=== PATIENT | female | born 2000 | race Caucasian/White ===

== ENCOUNTER 2019-09-07 15:32 | Emergency (ER) | payer BC ==
[~2019-09-07] VITALS: Ht 160 cm; Wt 50.0 kg
[~2019-09-07 15:32] MED LIST: ALBU90AE; EPIN0.3P18; FLUT1DIS28; NORG1TAB15; PRD20T PO
[2019-09-07] MEDS ORDERED: methylPREDNISolone 125 MG (Solu-MEDROL) VIAL ONE (15:34)
[2019-09-07] MEDS ORDERED: diphenhydrAMINE 50 MG/ML INJ (BENADRYL) ONE (15:34)
[2019-09-07] MEDS ORDERED: FLUT50BL IH (15:42)
--- NOTE | 2019-09-07 15:47 | ED General ---
General Chief Complaint: Allergic Reaction Stated Complaint: PEANUT ALLERGY/THROAT TIGHTNESS Nursing Triage Note: PT STATES HAS ALLERGY TO NUTS STATES ATE ALMOND BUTTER, USED EPPI PEN BUT FEELS LIKE THROAT TIGHTENING. APPROX 10MIN AGO Nursing Sepsis Screen: No Definite Risk Source of Information: Patient Exam Limitations: No Limitations History of Present Illness Date Seen by Provider: Sep 07, 2019 Time Seen by Provider: 15:43 Initial Comments To ER with reports of peanut allergy, drank an almond protein smoothie from [email or web address] house and believes it may have been contaminated with the peanut substance. Shortly after drinking as she developed tightness in her throat. She took her epinephrine pen about 10 minutes ago and has significant improvement in the tightness in her throat. No rash no itching no dyspnea and no abdominal cramping Timing/Duration: 1-2 Days Severity: Moderate Associated Systoms: Denies Symptoms Allergies and Home Medications Allergies Coded Allergies: peanut (Verified Allergy, Unknown, ANAPHYLAXIS, 09/10/17) Home Medications Prednisone 20 Mg Tab, 40 MG PO DAILY Prescribed by: SHREYAS MARLOW on 09/10/17 [id number] Patient Home Medication List Home Medication List Reviewed: Yes Review of Systems Review of Systems Constitutional: see HPI EENTM: see HPI Respiratory: no symptoms reported Cardiovascular: no symptoms reported Genitourinary: no symptoms reported Musculoskeletal: no symptoms reported Skin: no symptoms reported Psychiatric/Neurological: No Symptoms Reported Hematologic/Lymphatic: No Symptoms Reported Immunological/Allergic: no symptoms reported Past Qyyybzs-Kzdzuy-Douzrz Hx Patient Social History Alcohol Use: Denies Use Recreational Drug Use: No Smoking Status: Never a Smoker 2nd Hand Smoke Exposure: No Recent Foreign Travel: No Contact w/Someone Who Travel: No Recent Infectious Disease Expo: No Recent Hopitalizations: No Physical Abuse: No Sexual Abuse: No Immunizations Up To Date Tetanus Booster (TDap): Less than 5yrs PED Vaccines UTD: Yes Seasonal Allergies Seasonal Allergies: Yes Past Medical History Surgeries: No Respiratory: Yes Asthma Cardiac: No Neurological: No Last Menstrual Period: Aug 27, 2019 Genitourinary: No Gastrointestinal: No Musculoskeletal: No Endocrine: No HEENT: No Cancer: No Psychosocial: No Integumentary: No Blood Disorders: No Family Medical History No Pertinent Family Hx Physical Exam Vital Signs Vital Signs - First Documented 09/07/19 15:32 Temp 36.4 Pulse 102 Resp 18 B/P (MAP) 163/91 (115) Pulse Ox 100 Capillary Refill : Less Than 3 Seconds Height, Weight, BMI Height: 5'3.00" Weight: 110lbs. oz. 49.643969pa; 19.00 BMI Method:Stated General Appearance: No Apparent Distress, WD/WN Eyes: Bilateral Eye Normal Inspection, Bilateral Eye PERRL, Bilateral Eye EOMI HEENT: PERRL/EOMI, TMs Normal, Normal ENT Inspection, Other (No uvular swelling or evidence of airway involvement based on exam) Neck: Full Range of Motion Respiratory: Chest Non Tender, Lungs Clear, Normal Breath Sounds, No Accessory Muscle Use, No Respiratory Distress; No Respiratory Distress, No Rhonci, No Stridor, No Wheezing Cardiovascular: Regular Rate, Rhythm, Normal Peripheral Pulses Gastrointestinal: Normal Bowel Sounds, Non Tender, Soft Extremity: Normal Capillary Refill, Normal Inspection Neurologic/Psychiatric: Alert, Oriented x3 Skin: Normal Color, Warm/Dry; No Rash Progress/Results/Core Measures Suspected Sepsis Recent Fever Within 48 Hours: No Infection Criteria Present: None New/Unexplained Altered Menta: No Sepsis Screen: No Definite Risk SIRS Temperature: Pulse: 102 Respiratory Rate: 18 Blood Pressure 163 /91 Mean: 115 Results/Orders Vital Signs/I&O 09/07/19 15:32 Temp 36.4 Pulse 102 Resp 18 B/P (MAP) 163/91 (115) Pulse Ox 100 Capillary Refill : Less Than 3 Seconds Blood Pressure Mean: 115 POS Departure Impression Primary Impression: Allergy history, peanuts Additional Impression: Allergic reaction Disposition: 01 HOME, SELF-CARE Condition: Stable Departure-Patient Inst. Decision time for Depature: 15:46 Referrals: NO,LOCAL PHYSICIAN (PCP/Family) Primary Care Physician Patient Instructions: Allergy to Peanuts EMELI HERNANDEZ APRN Sep 07, 2019 15:47 POS
[2019-09-07] MEDS ORDERED: diphenhydrAMINE 50 MG/ML INJ (BENADRYL) IVP ONE (16:00)
[2019-09-07] MEDS ORDERED: methylPREDNISolone 125 MG (Solu-MEDROL) VIAL IVP ONE (16:00)
[2019-09-07] MEDS ORDERED: FAMOTIDINE 20MG/2ML IV (PEPCID) IVP ONE (16:00)
--- NOTE | 2019-09-07 16:04 | NUR ---
Pt reports feeling dizzy and cold hands. Andrew Scruggs notified.
[2019-09-07 17:19] VITALS: BP 109/94
[2019-09-08] MEDS ORDERED: PRD10T PO (02:42)
[2019-09-08] MEDS ORDERED: EPIN0.3P3 IJ (02:42)
== END 2019-09-07 17:20 | disposition home or self-care (01) ==
LOC: EDUNIT# 15:32 → ER 15:33
DX: T78.1XXA Other adverse food reactions, not elsewhere classified, initial encounter (principal); J45.909 Unspecified asthma, uncomplicated; Z91.010 Allergy to peanuts

== ENCOUNTER 2019-09-08 01:29 | Emergency (ER) | payer BC ==
[~2019-09-08] VITALS: Ht 160 cm; Wt 50.0 kg
[~2019-09-08 01:29] MED LIST changes: +EPINEPHrine INJECTION 1 MG/ML AMP ONE; +FAMOTIDINE 20MG/2ML IV (PEPCID) ONE; +FLUT50BL IH
[2019-09-08] MEDS ORDERED: methylPREDNISolone 125 MG (Solu-MEDROL) VIAL IVP ONE (02:00)
[2019-09-08] MEDS ORDERED: diphenhydrAMINE 50 MG/ML INJ (BENADRYL) IVP ONE (02:00)
[2019-09-08] MEDS ORDERED: FAMOTIDINE 20MG/2ML IV (PEPCID) IVP ONE (02:00)
[2019-09-08 02:13] LABS: AMPHETAMINE SCREEN, URINE NEGATIVE (NEGATIVE); BENZODIAZEPINES SCREEN URINE NEGATIVE (NEGATIVE); COCAINE SCREEN URINE NEGATIVE (NEGATIVE)
[2019-09-08 02:14] LABS: BARBITURATE SCREEN URINE NEGATIVE (NEGATIVE); CANNABINOID SCREEN, URINE NEGATIVE (NEGATIVE); METHADONE STAT NEGATIVE (NEGATIVE); METHAMPHETAMINE SCREEN URINE S NEGATIVE (NEGATIVE); OPIATE SCREEN URINE NEGATIVE (NEGATIVE); OXYCODONE STAT NEGATIVE (NEGATIVE); PROPOXYPHENE STAT NEGATIVE (NEGATIVE); TRICYCLIC ANTIDEPRESSANTS SCRE NEGATIVE (NEGATIVE)
[2019-09-08 02:14] LABS: BASOPHILS % (AUTO) 0 % (0-10); EOSINOPHILS % (AUTO) 0 % (0-10); HEMATOCRIT 39 % (35-52); HEMOGLOBIN 13.4 G/DL (11.5-16.0); LYMPHOCYTES # (AUTO) 0.8 X 10^3 (1.0-4.0); LYMPHOCYTES % (AUTO) 7 % (12-44); MEAN CORPUSCULAR HEMOGLOBIN 31 PG (25-34); MEAN CORPUSCULAR HGB CONC 34 G/DL (32-36); MEAN CORPUSCULAR VOLUME 91 FL (80-99); MEAN PLATELET VOLUME 9.7 FL (7.4-10.4); MONOCYTES # (AUTO) 0.2 X 10^3 (0.0-1.0); MONOCYTES % (AUTO) 2 % (0-12); NEUTROPHILS # (AUTO) 10.4 X 10^3 (1.8-7.8); NEUTROPHILS % (AUTO) 92 % (42-75); PLATELET COUNT 347 10^3/uL (130-400); RED CELL DISTRIBUTION WIDTH 11.7 % (10.0-14.5); WHITE BLOOD COUNT 11.3 10^3/uL (4.3-11.0)
--- NOTE | 2019-09-08 02:34 | ED General ---
General Chief Complaint: Allergic Reaction Stated Complaint: THROAT SWOLLEN/PEANUT ALLERGY Nursing Triage Note: PT PRESENTS TO ED 5 AMBULATORY, STATES SHE WAS SEEN IN THE ED EARLIER AROUND 1500 TODAY AFTER DRINKING A PROTIEN SHAKE THAT CONTAINS ALMONDS, PT HAS A SEVERE PEANUT ALLERGY, STATES SHE HAD TO USE HER EPI PEN EN ROUTE TO THE ED. STATES SHE FEELS LIKE HER SYMPTOMS BEGAN TO FLARE BACK UP AROUND 2300 TONIGHT. Nursing Sepsis Screen: No Definite Risk Source of Information: Patient History of Present Illness Date Seen by Provider: Sep 08, 2019 Time Seen by Provider: 01:40 Initial Comments PT ARRIVES VIA POV STATES "I THINK IT'S A PEANUT ALLERGY" STATES SHE HAD AN ALMOND BUTTER SHAKE FROM [place] AROUND 1510 TODAY PT STATES SHE IMMEDIATELY FELT LIKE HER THROAT WAS GETTING TIGHT, SO USED EPIPEN AT 1520 AND CAME TO ER WAS FEELING BETTER WHEN SHE WAS DISMISSED FROM ER AROUND 1730. NO RX GIVEN STATES SHE TOOK ONE 25 MG BENADRYL AT 2130 AND AGAIN AT 0015 STATES HER THROAT STARTED TO FEEL TIGHT AGAIN AROUND 2330 STATES SHE IS NOT HAVING ANY SWELLING OR ITCHING OR RASH ANYWHERE NO DIFFICULTY BREATHING OR TALKING OR SWALLOWING--HAS BEEN DRINKING WATER FINE STATES SHE WAS DX WITH PEANUT ALLERGY WHEN SHE WAS A SMALL CHILD, AND LAST TIME SHE HAD A BAD REACTION WAS AROUND AGE 1. STATES SHE ALSO HAS ASTHMA AND ALLERGIES, AND TAKES DEX DAILY. NO MISSED DOSES OF MEDICATIONS NO INCREASE IN ALLERGY SYMPTOMS --NO RUNNY NOSE, NO NASAL CONGESTION OR SINUS PAIN NO FEVER NO ACTUAL SORE THROAT NO RECENT ILLNESS PT STATES SHE SHE USES A MAINTENANCE ASTHMA INHALER EVERY MORNING, BUT HAS NOT HAD TO USE HER RESCUE INHALER IN A LONG TIME HAS NOT HAD ANY ASTHMA SYMPTOMS TODAY, WITH THESE ISSUES OF HER THROAT FEELING TIGHT. NO CHEST PAIN, NO SHORTNESS OF BREATH, NO WHEEZING. [employer] STUDENT Allergies and Home Medications Allergies Coded Allergies: peanut (Verified Allergy, Unknown, ANAPHYLAXIS, 09/10/17) Home Medications Epinephrine 0.3 Mg/0.3 Ml Auto.injct, 0.3 MG IJ UD Prescribed by: ELHAM SHAHID on 09/08/19241 Prednisone 10 Mg Tab, 40 MG PO DAILY Prescribed by: ELHAM SHAHID on 09/08/19241 Patient Home Medication List Home Medication List Reviewed: Yes Review of Systems Review of Systems Constitutional: no symptoms reported EENTM: see HPI, other (PER HPI); No mouth swelling, No nose congestion Respiratory: no symptoms reported; No cough, No short of breath, No wheezing Cardiovascular: no symptoms reported; No chest pain Gastrointestinal: no symptoms reported; No nausea, No vomiting Genitourinary: no symptoms reported LMP: Aug 27, 2019 (NORMAL.ON OCP'S. NO MISSED DOSES) Musculoskeletal: no symptoms reported Skin: no symptoms reported; No pruritus, No rash Psychiatric/Neurological: No Symptoms Reported Hematologic/Lymphatic: No Symptoms Reported Immunological/Allergic: see HPI Past Ckrirct-Uhzhwp-Xxfhth Hx Patient Social History Alcohol Use: Denies Use Recreational Drug Use: No Smoking Status: Never a Smoker 2nd Hand Smoke Exposure: No Recent Foreign Travel: No Contact w/Someone Who Travel: No Recent Infectious Disease Expo: No Recent Hopitalizations: No Physical Abuse: No Sexual Abuse: No Mistreated: No Fear: No Immunizations Up To Date Tetanus Booster (TDap): Less than 5yrs PED Vaccines UTD: Yes Seasonal Allergies Seasonal Allergies: Yes Past Medical History Surgeries: No Respiratory: Yes Asthma Cardiac: No Neurological: No : No Genitourinary: No Gastrointestinal: No Musculoskeletal: No Endocrine: No HEENT: No Cancer: No Psychosocial: No Integumentary: No Blood Disorders: No Family Medical History No Pertinent Family Hx Physical Exam Vital Signs Vital Signs - First Documented 09/08/19 01:30 Temp 36.6 Pulse 80 Resp 20 B/P (MAP) 146/94 (111) Pulse Ox 100 O2 Delivery Room Air Capillary Refill : Less Than 3 Seconds Height, Weight, BMI Height: 5'3.00" Weight: 110lbs. oz. 49.692915dk; 19.00 BMI Method:Stated General Appearance: No Apparent Distress, WD/WN, Other (SMILING, DOES NOT APPEAR TO BE IN ANY DISCOMFORT OR DISTRESS WHATSOEVER. ) HEENT: PERRL/EOMI, TMs Normal, Pharynx Normal, Moist Mucous Membranes; No Pharyngeal Erythema, No Tonsillar Exudate, No Tonsillar Enlargement; Other (COBBLESTONING OF POSTERIOR PHARYNX WITH MILD CLEAR POST NASAL DRAINAGE. NO SWELLING TO TONGUE, UVULA, SOFT PALATE OR POSTERIOR PHARYNX. NO SWELLING TO LIPS OR FACE. VOICE IS NORMAL. ) Neck: Full Range of Motion, Normal Inspection, Non Tender, Supple Respiratory: Normal Breath Sounds, No Accessory Muscle Use, No Respiratory Distress Cardiovascular: Regular Rate, Rhythm, No Edema, No Murmur Extremity: No Pedal Edema Neurologic/Psychiatric: Alert, Oriented x3, No Motor/Sensory Deficits, Normal Mood/Affect, spot facer II-XII Norm as Tested Skin: Normal Color, Warm/Dry; No Rash Progress/Results/Core Measures Suspected Sepsis Recent Fever Within 48 Hours: No Infection Criteria Present: None New/Unexplained Altered Menta: No Sepsis Screen: No Definite Risk SIRS Temperature: Pulse: 80 Respiratory Rate: 20 Laboratory Tests 09/08/19 02:00: White Blood Count 11.3H Blood Pressure 146 /94 Mean: 111 Laboratory Tests 09/08/19 02:00: Creatinine 0.88, Platelet Count 347, Total Bilirubin 0.2 Results/Orders Lab Results Laboratory Tests Test 09/08/19 01:54 09/08/19 02:00 Range/Units Urine Opiates Screen NEGATIVE NEGATIVE Urine Oxycodone Screen NEGATIVE NEGATIVE Urine Methadone Screen NEGATIVE NEGATIVE Urine Propoxyphene Screen NEGATIVE NEGATIVE Urine Barbiturates Screen NEGATIVE NEGATIVE Ur Tricyclic Antidepressants Screen NEGATIVE NEGATIVE Urine Phencyclidine Screen NEGATIVE NEGATIVE Urine Amphetamines Screen NEGATIVE NEGATIVE Urine Methamphetamines Screen NEGATIVE NEGATIVE Urine Benzodiazepines Screen NEGATIVE NEGATIVE Urine Cocaine Screen NEGATIVE NEGATIVE Urine Cannabinoids Screen NEGATIVE NEGATIVE Group A Streptococcus Screen NEGATIVE NEGATIVE White Blood Count 11.3 H 4.3-11.0 10^3/uL Red Blood Count 4.31 L 4.35-5.85 10^6/uL Hemoglobin 13.4 11.5-16.0 G/DL Hematocrit 39 35-52 % Mean Corpuscular Volume 91 80-99 FL Mean Corpuscular Hemoglobin 31 25-34 PG Mean Corpuscular Hemoglobin Concent 34 32-36 G/DL Red Cell Distribution Width 11.7 10.0-14.5 % Platelet Count 347 130-400 10^3/uL Mean Platelet Volume 9.7 7.4-10.4 FL Neutrophils (%) (Auto) 92 H 42-75 % Lymphocytes (%) (Auto) 7 L 12-44 % Monocytes (%) (Auto) 2 0-12 % Eosinophils (%) (Auto) 0 0-10 % Basophils (%) (Auto) 0 0-10 % Neutrophils # (Auto) 10.4 H 1.8-7.8 X 10^3 Lymphocytes # (Auto) 0.8 L 1.0-4.0 X 10^3 Monocytes # (Auto) 0.2 0.0-1.0 X 10^3 Eosinophils # (Auto) 0.0 0.0-0.3 10^3/uL Basophils # (Auto) 0.0 0.0-0.1 10^3/uL Neutrophils % (Manual) 86 % Lymphocytes % (Manual) 7 % Monocytes % (Manual) 3 % Band Neutrophils 4 % Blood Morphology Comment NORMAL Sodium Level 138 135-145 MMOL/L Potassium Level 4.0 3.6-5.0 MMOL/L Chloride Level 106 98-107 MMOL/L Carbon Dioxide Level 19 L 21-32 MMOL/L Anion Gap 13 5-14 MMOL/L Blood Urea Nitrogen 12 7-18 MG/DL Creatinine 0.88 0.60-1.30 MG/DL Estimat Glomerular Filtration Rate > 60 BUN/Creatinine Ratio 14 Glucose Level 173 H 70-105 MG/DL Calcium Level 9.3 8.5-10.1 MG/DL Corrected Calcium 9.4 8.5-10.1 MG/DL Total Bilirubin 0.2 0.1-1.0 MG/DL Aspartate Amino Transf (AST/SGOT) 16 5-34 U/L Alanine Aminotransferase (ALT/SGPT) 19 0-55 U/L Alkaline Phosphatase 46 40-136 U/L Total Protein 6.6 6.4-8.2 GM/DL Albumin 3.9 3.2-4.5 GM/DL Amylase Level 28 25-125 U/L Serum Test, Qualitative NEGATIVE NEGATIVE Serum Alcohol < 10 <10 MG/DL Monoscreen NEGATIVE NEGATIVE My Orders Orders - ELHAM SHAHID DO Ed Iv/Invasive Line Start (09/08/19:38) Urine Bedside (09/08/19:38) Monitor-Rhythm Ecg Trace Only (09/08/19:38) Alcohol (09/08/19:38) Amylase (09/08/19:38) Cbc With Automated Diff (09/08/19:38) Comprehensive Metabolic Panel (09/08/19:38) Drug Screen Stat (Urine) (09/08/19:38) Hcg,Qualitative Serum (09/08/19:38) Monotest (09/08/19:38) Rapid Strep A Screen (11/4/19 01:38) Thyroid Analyzer (09/08/19 01:38) Methylprednisolone Sod Succ (Solu-Medrol (09/08/19 02:00) Diphenhydramine Injection (Benadryl Inje (09/08/19 02:00) Famotidine Injection (Pepcid Injection) (09/08/19 02:00) Manual Differential (09/08/19 02:00) Medications Given in ED Current Medications Medications Dose Ordered Sig/Rand Route Start Time Stop Time Status Last Admin Dose Admin Diphenhydramine HCl 50 mg ONCE ONCE IVP 09/08/19 02:00 09/08/19 02:01 DC 09/08/19 02:05 50 MG Famotidine 40 mg ONCE ONCE IVP 09/08/19 02:00 09/08/19 02:01 DC 09/08/19 02:05 40 MG Methylprednisolone Sodium Succinate 125 mg ONCE ONCE IVP 09/08/19 02:00 09/08/19 02:01 DC 09/08/19 02:05 125 MG Vital Signs/I&O 09/08/19 01:30 Temp 36.6 Pulse 80 Resp 20 B/P (MAP) 146/94 (111) Pulse Ox 100 O2 Delivery Room Air Capillary Refill : Less Than 3 Seconds Blood Pressure Mean: 111 POS Progress Note : Progress Note ALL SYMPTOMS RESOLVED AT DISMISSAL Departure Impression Primary Impression: Hx of peanut allergy Additional Impressions: SUBJECTIVE THROAT TIGHTNESS Hx of allergic reaction History of asthma Disposition: HOME, SELF-CARE Condition: Improved Departure-Patient Inst. Referrals: NO,LOCAL PHYSICIAN (PCP) Primary Care Physician LUCITA DUTTON MD Patient Instructions: Allergy to Peanuts Add. Discharge Instructions: CONTINUE YOUR CURRENT MEDICATIONS PRESCRIBED LOTS OF WATER RETURN TO ER IF SYMPTOMS WORSEN TAKE BENADRYL 50 MG EVERY 4 HOURS NEEDED FOR ALLERGY SYMPTOMS All discharge instructions reviewed with patient and/or family. Voiced understanding. Scripts Epinephrine (Epipen 2-Francesco) 0.3 Mg/0.3 Ml Auto.injct 0.3 MG IJ UD, #1 UNIT Prov: KLEBERELHAM K DO 09/08/19 Prednisone (Prednisone) 10 Mg Tab 40 MG PO DAILY, #12 TAB Prov: ELHAM SHAHID DO 09/08/19 ELHAM SHAHID DO Sep 08, 2019 02:33 POS
[2019-09-08 02:35] LABS: ALANINE AMINOTRANSFERASE 19 U/L (0-55); ALBUMIN 3.9 GM/DL (3.2-4.5); ALKALINE PHOSPHATASE 46 U/L (40-136); AMYLASE 28 U/L (25-125); BAND NEUTROPHILS 4 %; BILIRUBIN,TOTAL 0.2 MG/DL (0.1-1.0); BUN/CREATININE RATIO 14; CALCIUM 9.3 MG/DL (8.5-10.1); CARBON DIOXIDE 19 MMOL/L (21-32); CHLORIDE 106 MMOL/L (98-107); CREATININE SERUM 0.88 MG/DL (0.60-1.30); GFR ESTIMATED > 60; GLUCOSE 173 MG/DL (70-105); LYMPHOCYTES % (MANUAL) 7 %; MONOCYTES % (MANUAL) 3 %; NEUTROPHILS % (MANUAL) 86 %; RBC MORPH NORMAL; SODIUM 138 MMOL/L (135-145); TOTAL PROTEIN 6.6 GM/DL (6.4-8.2)
[2019-09-08] MEDS ORDERED: EPIN0.3P3 IJ (02:42)
[2019-09-08] MEDS ORDERED: PRD10T PO (02:42)
[2019-09-08 02:55] LABS: TSH (THYROID ANALYZER) 0.58 UIU/ML (0.35-4.94)
[2019-09-08 03:00] VITALS: BP 127/82
== END 2019-09-08 03:02 | disposition home or self-care (01) ==
LOC: EDUNIT# 01:29 → ER 01:31
DX: J39.2 Other diseases of pharynx (principal); J45.909 Unspecified asthma, uncomplicated; Z91.010 Allergy to peanuts; Z87.892 Personal history of anaphylaxis
CPT/HCPCS: 36415; 80053; 80306; 80320; 82150; 84443; 84703; 85007; 85027; 86308; 87430; 93041